=== PATIENT | male | born 1945 | race Caucasian/White ===

== ENCOUNTER 2024-12-24 10:55 | Outpatient (REF) | payer OTHER, SELFPAY | END 2024-12-24 10:56 | disposition home or self-care (01) | LOC: LBN 10:55 | PROVIDERS: PCP Physician Assistant; Visit Provider Podiatrist | DX: L97.529 Non-pressure chronic ulcer of other part of left foot with unspecified severity (principal); L02.612 Cutaneous abscess of left foot | CPT/HCPCS: 87077; 87070; 87075; 87186; 87205 ==